=== PATIENT | female | born 1960 | race Caucasian/White ===

== ENCOUNTER 2017-04-25 14:54 | Observation (INO) ==
[2017-04-25] MEDS ORDERED: *HR* Morphine 2 MG/ML SYRINGE IVP ONE (15:07)
[2017-04-25] MEDS ORDERED: 0.9 % Sodium Chloride 1,000 ML IVC ONE (15:07)
[2017-04-25] MEDS ORDERED: Ondansetron 4 MG/2 ML VIAL IVP ONE ×2 (15:07→17:12)
--- NOTE | 2017-04-25 15:14 | Emergency Department Note ---
Disposition Clinical Impression: Kidney stone on right side Disposition: Admitted As Inpatient Condition: Good Referrals: NONE,PCP [Non-Partnered Physician] - Forms: Work/School Release, ED Satisfaction Letter Time of Disposition: 18:02 Abdominal Pain HPI - General Chief Complaint: ED Abdominal Pain Stated Complaint: abd pain, n/v Time Seen by Provider: 04/25/17 15:01 Source: patient Mode of arrival: ambulatory Limitations: no limitations Nursing Notes Reviewed: Yes Vital Signs Reviewed: Yes - History of Present Illness HPI Narrative: 56 year old female who has been experiencing increased RLQ pain for the past 3 days assocaited with vomitting She statees that 2 nights ago it was so bad that she has by the toilet vomitting and fell asleep by it due to the pain in her RLQ. She states she also has a history of psuedotumor cerebri and her most recent ICP was 32, but had a spinal tap and she denies a headache at this time. She states that the RLQ pain radiates into the RUQ and around to the back. Jaquelin states she has also had a fever at home of 101 Tmaxx and that she has not had any previous history of abdominal surgeries. Patient denies history of kidney stones, kidney infections, UTIs, or constipation/diarrhea, chest pain or shortness of breath. Perry vomit is NBNB. Pain Scale: 7 - Related Data Previous Rx's Medication Instructions Recorded Levofloxacin [Levaquin] 750 mg PO DAILY #10 tablet 10/16/16 Allergies Allergy/AdvReac Type Severity Reaction Status Date / Time codeine Allergy See Verified 10/16/16 07:14 Comments Penicillins Allergy See Verified 10/16/16 07:14 Comments Constitutional: Denies: fever, chills, weakness, weight change Eyes: Denies: eye pain, eye discharge, vision change ENT ED: Denies: ear pain, throat pain, dental pain, hearing loss, epistaxis, congestion, dysphagia Cardiovascular: Denies: chest pain, palpitations, dyspnea on exertion, edema, syncope Respiratory: Denies: cough, dyspnea, wheezes, hemoptysis, stridor Gastrointestinal: Reports: abdominal pain, nausea, vomiting. Denies: diarrhea, constipation, hematemesis, melena, hematochezia Genitourinary: Denies: dysuria, frequency, hematuria, discharge Musculoskeletal: Denies: back pain, neck pain, arthralgia, myalgia Integumentary: Denies: rash, abrasion, lesions Neurological: Denies: headache, weakness, numbness, paresthesias, confusion, abnormal gait, vertigo Psychiatric: Denies: anxiety, depression, suicidal thoughts, homicidal thoughts , auditory hallucinations, visual hallucinations Endocrine: Denies: fatigue Hematological/Lymphatic: Denies: easy bleeding, easy bruising Allergic/Immunologic: Denies: facial swelling, urticaria Abdominal Pain PMH - Past Medical History Medical history: Reports: hyperlipidemia, hypertension, other Female Surgical History: Reports: hysterectomy, other Psychiatric history: Reports: anxiety, depression - Social History Smoking status: Current every day smoker Alcohol use: Reports: rarely Drug use: Reports: none Physical Exam - General Limitations: no limitations General appearance: alert - Head Head exam: atraumatic, normocephalic, normal inspection - Eye Eye exam: Present: normal appearance, PERRL, EOMI - Expanded Eye Exam Pupils: Left: reactive - ENT ENT exam: normal exam, normal oropharynx, mucous membranes moist - Expanded ENT Exam External ear exam: Present: normal external inspection Mouth exam: Present: normal external inspection Teeth exam: Present: normal inspection Throat exam: Present: normal inspection - Neck Neck exam: Present: normal inspection, full ROM, trachea midline - Chest Chest inspection: Present: normal inspection, symmetric chest wall rise - Respiratory Respiratory exam: Present: normal lung sounds bilaterally - Cardiovascular Cardiovascular exam: Present: normal rhythm, tachycardia, normal heart sounds - Abdominal Exam Abdominal exam: Present: soft, tenderness. Absent: Non-Tender, distention, guarding, rebound, rigidity Abdominal tenderness: Present: RLQ, mild - Extremities Exam Extremities exam: Present: normal inspection, full ROM. Absent: tenderness, pedal edema - Expanded Upper Extremity Exam Shoulder exam: Present: normal inspection, full ROM Arm exam: Present: normal inspection, full ROM Elbow exam: Present: normal inspection, full ROM Forearm/Wrist exam: Present: normal inspection, full ROM Hand exam: Present: normal inspection, full ROM Vascular exam: Normal: capillary refill, radial pulse - Expanded Lower Extremity Exam Hip/Pelvis exam: Present: normal inspection, full ROM Upper leg exam: Present: normal inspection, full ROM Knee exam: Present: normal inspection, full ROM Lower leg exam: Present: normal inspection, full ROM Ankle exam: Present: normal inspection, full ROM Foot/toe exam: Present: normal inspection, full ROM Neurovascular/Tendon exam: Absent: motor deficit, sensory deficit, tendon deficit - Back Exam Back exam: Present: normal inspection, full ROM. Absent: tenderness - Neurological Exam Neurological exam: Present: alert, oriented X3 - Expanded Neurological Exam Patient oriented to: Present: person, place, time Coma Scale Eye Opening: Spontaneous Coma Scale Motor Response: Obeys Commands Coma Scale Verbal Response: Oriented Coma Scale Total: 15 - Psychiatric Psychiatric exam: Present: normal affect, normal mood - Skin Skin exam: Present: warm, dry, intact, normal color Course Course Narrative: we will do a ABCT with IV Contrast and IVF/zofran for therapy with abdominal labs. - Reevaluation(s) Reevaluation #1: updated patient on results. She has decline outptinet therapy and would like to be admitted for surgical evaluation. Time: 18:01 - Consultations Consultation #1: Dr. Galvan has accepted patinet for admission to his service Time: 18:02 Vital Signs Temperature 99.8 F H 04/25/17 14:55 Pulse Rate 105 04/25/17 14:55 Respiratory Rate 22 04/25/17 14:55 Blood Pressure 137/90 04/25/17 14:55 O2 Sat by Pulse Oximetry 96 04/25/17 14:55 Temperature 99.8 F H 04/25/17 14:55 Pulse Rate 105 04/25/17 14:55 Respiratory Rate 22 04/25/17 14:55 Blood Pressure 137/90 04/25/17 14:55 O2 Sat by Pulse Oximetry 96 04/25/17 14:55 Oxygen Delivery Oxygen Delivery Room Air Abdominal Pain - Lab Data Result diagrams: 04/25/17 15:17 04/25/17 15:17 Lab Results 04/25/17 04/25/17 04/25/17 Range/Units 15:17 15:17 15:17 WBC 11.8 H (4.3-11.1) K/mcL RBC 4.61 (3.82-4.97) M/mcL Hgb 14.0 (11.5-15.4) g/dL Hct 42.7 (35.3-44.9) % MCV 92.6 (83.0-100.0) fL MCH 30.4 (28.0-33.3) pg MCHC 32.8 (31.6-35.5) g/dL RDW 13.7 (11.5-14.5) % Plt Count 294 (140-400) K/mcL MPV 9.8 (9.4-12.4) fL Immature Gran % 0.8 (0-4) % Seg Neutrophils % 77.7 % Lymphocytes % 11.9 % Monocytes % 7.3 % Eosinophils % 1.9 % Basophils % 0.4 % Neutrophils # 9.2 H (1.6-8.9) K/mcL Lymphocytes # 1.4 (0.6-4.6) K/mcL Monocytes # 0.9 (0.0-1.3) K/mcL Eosinophils # 0.2 (0.0-0.6) K/mcL Basophils # 0.1 (0.0-0.2) K/mcL PT 11.0 (9.4-12.1) Seconds INR 1.0 APTT 30.1 (26.0-36.0) Seconds Sodium 140 (136-145) mEq/L Potassium 4.0 (3.5-4.5) mEq/L Chloride 111 H (98-109) mEq/L Carbon Dioxide 21 (19-29) mEq/L BUN 21 H (7-20) mg/dL Creatinine 1.47 H (0.57-1.11) mg/dL Est GFR ( Amer) 44 L (> 60) Est GFR (Non-Af Amer) 37 L (> 60) BUN/Creatinine Ratio 14 (6-26) Glucose 94 (70-99) mg/dL Calculated Osmolality 293 (280-300) Lactic Acid (0.5-2.2) mmol/L Calcium 9.5 (8.6-10.8) mg/dL Total Bilirubin 0.3 (0.2-1.2) mg/dL Direct Bilirubin 0.1 (0.0-0.5) mg/dL Indirect Bilirubin 0.2 (0.0-1.2) mg/dL AST 13 (5-34) Units/L ALT 11 (0-55) Units/L Alkaline Phosphatase 112 (38-126) Units/L Troponin I (0-0.03) ng/mL Serum Total Protein 6.1 (6.0-8.3) g/dL Albumin 3.2 L (3.5-5.0) g/dL Globulin 2.9 (2.4-3.5) g/dL Albumin/Globulin Ratio 1.1 (1.1-2.2) Lipase < 10 (8-78) Units/L Urine Color (Yellow) Urine Clarity (Clear) Urine pH (5.0-8.0) pH Units Ur Specific [place] (1.010-1.025) Urine Protein (Neg-Trace) mg/dL Urine Glucose (UA) (Normal) mg/dL Urine Ketones (Negative) mg/dL Urine Blood (Negative) Urine Nitrite (Negative) Urine Bilirubin (Negative) Urine Urobilinogen (Normal) mg/dL Ur Leukocyte Esterase (Negative) Urine Microscopic RBC (0-3) per hpf Urine Microscopic WBC (0-3) per hpf Ur Squamous Epith Cells (None-Few) per lpf Urine Bacteria (None-Few) per hpf Hyaline Casts (None-Few) per lpf Ur Culture Indicated? (NO) 04/25/17 04/25/17 04/25/17 Range/Units 15:17 15:17 15:42 WBC (4.3-11.1) K/mcL RBC (3.82-4.97) M/mcL Hgb (11.5-15.4) g/dL Hct (35.3-44.9) % MCV (83.0-100.0) fL MCH (28.0-33.3) pg MCHC (31.6-35.5) g/dL RDW (11.5-14.5) % Plt Count (140-400) K/mcL MPV (9.4-12.4) fL Immature Gran % (0-4) % Seg Neutrophils % % Lymphocytes % % Monocytes % % Eosinophils % % Basophils % % Neutrophils # (1.6-8.9) K/mcL Lymphocytes # (0.6-4.6) K/mcL Monocytes # (0.0-1.3) K/mcL Eosinophils # (0.0-0.6) K/mcL Basophils # (0.0-0.2) K/mcL PT (9.4-12.1) Seconds INR APTT (26.0-36.0) Seconds Sodium (136-145) mEq/L Potassium (3.5-4.5) mEq/L Chloride (98-109) mEq/L Carbon Dioxide (19-29) mEq/L BUN (7-20) mg/dL Creatinine (0.57-1.11) mg/dL Est GFR ( Amer) (> 60) Est GFR (Non-Af Amer) (> 60) BUN/Creatinine Ratio (6-26) Glucose (70-99) mg/dL Calculated Osmolality (280-300) Lactic Acid 0.8 (0.5-2.2) mmol/L Calcium (8.6-10.8) mg/dL Total Bilirubin (0.2-1.2) mg/dL Direct Bilirubin (0.0-0.5) mg/dL Indirect Bilirubin (0.0-1.2) mg/dL AST (5-34) Units/L ALT (0-55) Units/L Alkaline Phosphatase (38-126) Units/L Troponin I 0.00 (0-0.03) ng/mL Serum Total Protein (6.0-8.3) g/dL Albumin (3.5-5.0) g/dL Globulin (2.4-3.5) g/dL Albumin/Globulin Ratio (1.1-2.2) Lipase (8-78) Units/L Urine Color Yellow (Yellow) Urine Clarity Clear (Clear) Urine pH 6.0 (5.0-8.0) pH Units Ur Specific [place] 1.016 (1.010-1.025) Urine Protein Negative (Neg-Trace) mg/dL Urine Glucose (UA) Normal (Normal) mg/dL Urine Ketones Negative (Negative) mg/dL Urine Blood Small H (Negative) Urine Nitrite Negative (Negative) Urine Bilirubin Negative (Negative) Urine Urobilinogen Normal (Normal) mg/dL Ur Leukocyte Esterase Negative (Negative) Urine Microscopic RBC 5-15 H (0-3) per hpf Urine Microscopic WBC 0-3 (0-3) per hpf Ur Squamous Epith Cells Many H (None-Few) per lpf Urine Bacteria None Seen (None-Few) per hpf Hyaline Casts None Seen (None-Few) per lpf Ur Culture Indicated? NO (NO)
[2017-04-25 15:27] LABS: Basophils # 0.1 K/mcL (0.0-0.2); Basophils % 0.4 %; Eosinophils # 0.2 K/mcL (0.0-0.6); Eosinophils % 1.9 %; Hematocrit 42.7 % (35.3-44.9); Immature Granulocytes % 0.8 % (0-4); Lymphocytes # 1.4 K/mcL (0.6-4.6); Lymphocytes % 11.9 %; Mean Corpuscular HGB Conc 32.8 g/dL (31.6-35.5); Mean Corpuscular Hemoglobin 30.4 pg (28.0-33.3); Mean Corpuscular Volume 92.6 fL (83.0-100.0); Mean Platelet Volume 9.8 fL (9.4-12.4); Monocytes # 0.9 K/mcL (0.0-1.3); Monocytes % 7.3 %; Neutrophils # 9.2 K/mcL (1.6-8.9); Platelet Count 294 K/mcL (140-400); Red Blood Count 4.61 M/mcL (3.82-4.97); Red Cell Distribution Width 13.7 % (11.5-14.5); Segmented Neutrophils % 77.7 %
[2017-04-25 15:39] LABS: Activated Partial Thrombo Time 30.1 Seconds (26.0-36.0)
[2017-04-25 15:43] LABS: Alanine Aminotransferase 11 Units/L (0-55); Albumin 3.2 g/dL (3.5-5.0); Albumin/Globulin Ratio 1.1 (1.1-2.2); Alkaline Phosphatase 112 Units/L (38-126); Aspartate Amino Transferase 13 Units/L (5-34); BUN/Creatinine Ratio 14 (6-26); Bilirubin,Direct 0.1 mg/dL (0.0-0.5); Bilirubin,Indirect 0.2 mg/dL (0.0-1.2); Bilirubin,Total 0.3 mg/dL (0.2-1.2); Blood Urea Nitrogen 21 mg/dL (7-20); Calcium 9.5 mg/dL (8.6-10.8); Carbon Dioxide 21 mEq/L (19-29); Chloride 111 mEq/L (98-109); Globulin 2.9 g/dL (2.4-3.5); Glucose 94 mg/dL (70-99); Osmolality,Calculated 293 (280-300); Sodium 140 mEq/L (136-145); Total Protein 6.1 g/dL (6.0-8.3); eGFR For African Americans 44 (> 60); eGFR For Non-African Americans 37 (> 60)
[2017-04-25 15:54] LABS: Bilirubin,Urine Negative (Negative); Blood,Urine Small (Negative); Clarity,Urine Clear (Clear); Color,Urine Yellow (Yellow); Glucose,Urine (UA) Normal (Normal); Ketones,Urine Negative (Negative); Leukocyte Esterase,Urine Negative (Negative); Nitrite,Urine Negative (Negative); Protein,Urine Negative (Neg-Trace); Specific Gravity,Urine 1.016 (1.010-1.025); Urobilinogen,Urine Normal (Normal)
[2017-04-25 15:55] LABS: Lipase < 10 Units/L (8-78)
[2017-04-25 15:55] LABS: Bacteria,Urine None Seen per hpf (None-Few); Hyaline Casts,Urine None Seen per lpf (None-Few); Squamous Epithelial Cell,Urine Many per lpf (None-Few); WBC,Urine 0-3 per hpf (0-3)
[2017-04-25] MEDS ORDERED: Ketorolac 30 MG/ML VIAL IVP ONE (17:12)
[2017-04-25] MEDS ORDERED: *HR* HYDROmorphone (PF) 1 MG/ML SYRINGE IVP ONE (18:14)
[2017-04-25] MEDS ORDERED: *HR* HYDROmorphone (PF) 1 MG/ML SYRINGE IVP PRN (18:23)
[2017-04-25] MEDS ORDERED: Naloxone 0.4 MG/ML INJ IVP PRN (18:23)
[2017-04-25] MEDS ORDERED: *HR* OxyCODONE Immed Rel 5 MG TABLET PO PRN (18:23)
[2017-04-25] MEDS ORDERED: Ondansetron 4 MG/2 ML VIAL IVP PRN (18:23)
[2017-04-25] MEDS ORDERED: Acetaminophen 325 MG TABLET PO PRN (18:23)
[2017-04-25] MEDS ORDERED: *HR* Promethazine 25 MG/ML VIAL IVP PRN (18:23)
--- NOTE | 2017-04-25 18:23 | Urology History & Physical ---
Date of Encounter: 04/25/17 Time of Encounter: 18:20 Assessment and Plan (1) Kidney stone on right side Current Visit: Yes Status: Acute 56-year-old woman with a history of right flank pain secondary to a distal right ureteral stone. I will admit her for pain control. I recommend proceeding with a right ureteroscopy, laser lithotripsy, and stent placement tomorrow if her pain is not improved. She was informed of the risks of the procedure including but not limited to bleeding, infection, injury to other structures, need for further procedures, stent irritation, incomplete fragmentation, ureteral perforation, need for nephrostomy tube, need for open repair, risks unforeseen, and the risk of anesthesia. She is willing to proceed. History of Present Illness Chief complaint: Right flank pain HPI: Ms. Mishra is a 56 year old female who presents with a history of flank pain. The pain started 2 days ago. Its located in the right flank and radiates to the right groin. It became more severe today and she came to the emergency department. She's been nauseated. She has not tolerated food. The pain is very sharp. She was seen in the emergency department and a CT scan showed an 8 mm distal right ureteral stone as well as small stones in the right kidney as well as some small fragments within the left kidney. Her pain has not been well controlled and she was admitted for further pain control. Past Med Surg Social Fam HX - Past Medical History Medical history: hyperlipidemia, hypertension, other Psychiatric history: anxiety, depression - Past Surgical History Surgical History: non-contributory - Social History Smoking Status: Current every day smoker Smokeless Tobacco Status: No Alcohol use: rarely Drug use: none - Family History Daughter Hx Family Genitourinary Disorders: Yes (Stones) Medications and Allergies Levofloxacin [Levaquin] 750 mg PO DAILY #10 tablet 10/16/16 [Rx] 3 Allergy/AdvReac Type Severity Reaction Status Date / Time codeine Allergy See Verified 10/16/16 07:14 Comments Penicillins Allergy See Verified 10/16/16 07:14 Comments Review of Systems - Constitutional no chills, no fever(s) - EENT Nose, mouth and throat: no dizziness - Cardiovascular no chest pain - Respiratory no dyspnea - Gastrointestinal nausea, vomiting - Genitourinary Genitourinary: flank pain, no hematuria - Musculoskeletal no back pain - Integumentary no erythema, no rash - Neurological no weakness - Psychiatric no suicidal ideation - Hematologic/Lymphatic no easy bleeding - Allergic/Immunologic no wheezing Exam Initial Vital Signs Temp Pulse Resp BP Pulse Ox 99.8 F H 105 22 137/90 96 04/25/17 14:55 04/25/17 14:55 04/25/17 14:55 04/25/17 14:55 04/25/17 14:55 - General physical appearance Present: well developed, well nourished, no distress - Eyes Absent: icteric - ENT Present: normal nares - Neck Present: trachea midline - Respiratory Present: normal respiratory effort - Cardiovascular Cardiovascular exam IM: RRR - Abdomen Abdomen: Present: soft Urology Results - Labs 04/25/17 15:17 04/25/17 15:17 Abnormal lab results WBC 11.8 K/mcL (4.3-11.1) H 04/25/17 15:17 Neutrophils # 9.2 K/mcL (1.6-8.9) H 04/25/17 15:17 Chloride 111 mEq/L (98-109) H 04/25/17 15:17 BUN 21 mg/dL (7-20) H 04/25/17 15:17 Creatinine 1.47 mg/dL (0.57-1.11) H 04/25/17 15:17 Est GFR ( Amer) 44 (> 60) L 04/25/17 15:17 Est GFR (Non-Af Amer) 37 (> 60) L 04/25/17 15:17 Albumin 3.2 g/dL (3.5-5.0) L 04/25/17 15:17 Urine Blood Small (Negative) H 04/25/17 15:42 Urine Microscopic RBC 5-15 per hpf (0-3) H 04/25/17 15:42 Ur Squamous Epith Cells Many per lpf (None-Few) H 04/25/17 15:42 All other labs normal. - Imaging CT scan - abdomen: report reviewed, image reviewed CT scan - pelvis: report reviewed, image reviewed
[2017-04-25] MEDS: 0.9 % Sodium Chloride 1,000 ML IVC SCH (20:46)
[2017-04-26] MEDS: Ketorolac 15 MG/ML VIAL IVP SCH ×2 (00:15→05:15)
[2017-04-26] MEDS: 0.9 % Sodium Chloride 1,000 ML IVC SCH (05:13)
--- NOTE | 2017-04-26 06:54 | Urology Progress Note ---
Date of Encounter: 04/26/17 Time of Encounter: 06:53 - Assessment and Plan (1) Kidney stone on right side Current Visit: Yes Status: Acute Assessment and plan: Right ureteral stone. 1. Plan for right ureteroscopic stone extraction with laser lithotripsy and stent placement. She is aware of all risks. Levofloxacin given this morning. All questions answered. Progress Note Narrative: Still with some pain this morning. No fevers overnight. Plan for right ureteroscopy today. Objective Initial Vital Signs Temp Pulse Resp BP Pulse Ox 99.8 F H 105 22 137/90 96 04/25/17 14:55 04/25/17 14:55 04/25/17 14:55 04/25/17 14:55 04/25/17 14:55 - General physical appearance Present: well developed, well nourished, no distress - Respiratory Present: normal respiratory effort - Abdomen Present: soft - Labs 04/25/17 15:17 04/25/17 15:17 - VTE Documentation of Mechanical Device: Intermittent pneumatic compression device Consult Discharge Plan - Plan Referrals: Dino Martel MD [Primary Care Provider] - Hilton Galvan MD [Partnered Physician] -
[2017-04-26] MEDS ORDERED: Levofloxacin 500 MG/100 ML 500 MG/100 ML BAG IVPB ONE (07:00)
--- NOTE | 2017-04-26 07:25 | Anesthesia Evaluation PreOp ---
Date of Encounter: 04/26/17 Time of Encounter: 07:47 - Past History Planned Operation: Right Ureteroscopic Stone Extraction Cardiac History: HTN, Hyperlipidemia Pulmonary History: Smoker (42 years), Asthma CUSTOMER RELATIONS COORDINATOR History: Other (pseudotumor cerebri) Other Medical History: Renal (kidney stones), GERD, Other (anxiety/depression) Anesthesia History: No Prior Anesthetic Complications, Past Anesthesia Alcohol Use: rarely Drug use: none Medications and Allergies AcetaZOLAMIDE [Diamox Sequels] 500 mg PO BID 04/25/17 [History] Albuterol Sulfate [Proair Hfa] 2 puff IH Q4H PRN 04/25/17 [History] Amitriptyline [Elavil] 25 - 50 mg PO HS 04/25/17 [History] Amlodipine Besylate 2.5 mg PO DAILY 04/25/17 [History] Atorvastatin [Lipitor] 40 mg PO HS 04/25/17 [History] Cholecalciferol (D-3) [Vitamin D] 2,000 unit PO DAILY 04/25/17 [History] Esomeprazole Magnesium [Nexium] 40 mg PO DAILY 04/25/17 [History] Etodolac [Lodine] 400 mg PO BID PRN 04/25/17 [History] Fluticasone Propionate [Flovent Hfa] 2 puff IH BID PRN 04/25/17 [History] Furosemide [Lasix] 20 mg PO DAILY 04/25/17 [History] Gabapentin [Neurontin] 300 mg PO BID PRN 04/25/17 [History] Metoprolol Succinate 100 mg PO DAILY 04/25/17 [History] Multivitamin [Multi-Day Vitamins] 1 each PO DAILY 04/25/17 [History] [place]-3/Dha/Epa/Fish Oil [Fish Oil 500 mg Softgel] 1 each PO DAILY 04/25/17 [ History] Potassium Chloride [Klor-Con 10] 10 meq PO BID 04/25/17 [History] Sertraline [Zoloft] 150 mg PO DAILY 04/25/17 [History] Tizanidine HCl [Zanaflex] 4 mg PO Q8H PRN 04/25/17 [History] Vitamin E 1,000 unit PO DAILY 04/25/17 [History] clonazePAM [Klonopin] 0.5 mg PO BID PRN 04/25/17 [History] 3 Allergy/AdvReac Type Severity Reaction Status Date / Time codeine Allergy See Verified 10/16/16 07:14 Comments Penicillins Allergy See Verified 10/16/16 07:14 Comments laxatives AdvReac Gastrointestinal Uncoded 04/26/17 06:37 Upset - Meds/Allergy Pre-op Review Medications Reviewed: Yes Allergies Reviewed: Yes Beta Blockers on Current Med List: Yes If Beta Blockers taken, Date/Time (Last Dose taken): 04/23/2017 Anesthesia Results - Labs 04/25/17 15:17 04/25/17 15:17 Laboratory Tests 04/25/17 15:17 PT 11.0 INR 1.0 APTT 30.1 - Imaging EKG: report reviewed (04/25/2017 SR) Additional studies: 06/04/2013 LEFT HEART CATH Indications: Positive Nuclear Stress Test Impressions: Coronary arteries are angiographically normal. The left ventricle is normal and has normal contractility EF 60% Anesthesia Exam Vital Signs/O2 Sat/Glucose, Most Recent Temp Pulse Resp BP Pulse Ox 98.0 F 70 15 110/66 96 04/26/17 04:25 04/26/17 04:25 04/26/17 04:25 04/26/17 04:25 04/26/17 04:25 Blood Glucose* 93 Height: 5'7''/1.7 m Weight: 182 lbs/82.6 kg NPO (# of Hours): 8 Pain Scale: 3 Pain Scale Used: Numeric (1 - 10) - HEENT Pupil (Motor): EOMI Mallampati: II Teeth: Edentulous Oral Opening: Greater than 3 - CUSTOMER RELATIONS COORDINATOR LOC: Oriented CUSTOMER RELATIONS COORDINATOR Motor: Normal RUE, Normal LUE, Normal RLE, Normal LLE, Normal Face CUSTOMER RELATIONS COORDINATOR Sensory: Normal: RUE, LUE, RLE, LLE, Face - Cardiac Rhythm: Regular Murmur: None - Pulmonary Breath Sounds: bilateral Clear Respiratory Effort: Symmetrical Anesthesia Assess/Plan ASA Score: 3 Modified Zoya Scale for Level of Consciousness: Cooperative, oriented, and tranquil Anesthetic Plan: General Monitoring Plan: Standard Monitors Recovery Plan: PACU
[2017-04-26] MEDS ORDERED: Albuterol 2.5 MG/3 ML NEBULIZER IH ONE (07:51)
[2017-04-26] MEDS ORDERED: Albuterol 2.5 MG/3 ML NEBULIZER ONE (07:56)
[2017-04-26] MEDS ORDERED: *HR* HYDROmorphone (PF) 1 MG/ML SYRINGE IVP PRN ×2 (08:06→11:09)
[2017-04-26] MEDS ORDERED: *HR* Promethazine 25 MG/ML VIAL IVP PRN ×2 (08:06→11:09)
[2017-04-26] MEDS ORDERED: *HR* Propofol 200 MG/20 ML VIAL IVP ONE (08:52)
[2017-04-26] MEDS ORDERED: Lidocaine -MPF 2% 2 ML VIAL ONE (08:52)
[2017-04-26] MEDS ORDERED: *HR* FentaNYL (PF) 100 MCG/2 ML VIAL ONE (08:52)
[2017-04-26] MEDS ORDERED: *HR* Midazolam HCl 2 MG/2 ML VIAL ONE (08:52)
[2017-04-26] MEDS ORDERED: *HR* Metoprolol 5 MG/5 ML VIAL IVP ONE (09:16)
[2017-04-26] MEDS ORDERED: Dexamethasone 4 MG/ML VIAL ONE (09:25)
[2017-04-26] MEDS ORDERED: Ondansetron 4 MG/2 ML VIAL ONE (09:25)
--- NOTE | 2017-04-26 10:00 | Operative Note ---
Date of procedure: 04/26/17 Pre-op diagnosis: 1. Right distal ureteral stone 2. Right renal stones. Post-op diagnosis: same Procedure: 1. Distal right ureteroscopy, laser lithotripsy, basket stone extraction, and right ureteral stent placement. 2. Staged right proximal ureteroscopy, laser lithotripsy. Implants: 6 [place] by 24 cm double-J stent. Complications: None. Anesthesia: NANCYA Surgeon: Hilton Galvan Estimated blood loss (cc): 1 Specimen: right ureteral stone Condition: stable Disposition: PACU Procedure in Detail: Indications: Alexia is a 56-year-old female who presents with right flank pain. A CT scan showed a 8 mm distal right ureteral stone. In addition she had right renal stones. She failed outpatient management and elected to have the stone removed. She elected to undergo a right distal ureteroscopy, laser lithotripsy, and stent placement along with a staged right proximal ureteroscopy and laser lithotripsy. She was aware of the risks of the procedure including but not limited to bleeding, infection, injury to other structures, need for further procedures, need for stent, stent irritation, incomplete treatment, and the risk of anesthesia. She is willing to proceed. Procedure: After informed consent was obtained the patient was brought back to the operating room and placed in supine position. A time out was performed. General anesthesia was administered and an LMA was placed. She was then placed in the lithotomy position. She was prepped and draped in the usual sterile fashion. Cystoscopy was performed. The anterior urethra was normal. There was no evidence of bladder tumors. The ureteral orifices were in the normal orthotopic position. There was no duplication of the ureteral orifices. The sensor wire was placed in the right ureteral orifice and with the assistance of an open- ended catheter it was able to be moved past the stone into the kidney under fluoroscopic guidance. I then gently dilated the ureter with the 8/10 [place] ureteral dilator. I then advanced the semirigid ureteroscope into the ureter. The stone was fragmented using the 200 micron fiber. The stone fragments were then basket extracted. Once all the stones were extracted, I placed a Zip wire through the scope and this is brought to the kidney under fluoroscopic guidance. An 11/13 [place] ureteral access sheath was then placed. The flexible ureteroscope was advanced into the kidney. Two stones were seen in the lower pole calyx. These stones were then basketed and removed to the upper pole calyx. There were 3 other stones in the upper pole calyx as well. The laser fiber was then inserted and the stones were then lithotripsied. All the fragments appeared to be approximately 1 mm or less in size. These were left in the kidney and should pass with the stent. Once the stones were adequate fragmented the ureteroscope was removed. There is no evidence of injury to the ureter on the pullout ureteroscopy. A 6 [place] by 24cm JJ stent was then placed with good curl seen in the kidney and the bladder. The dangle string was left intact and tucked into the vagina. The patient was then awakened from general anesthesia and brought to recovery room in good condition. All sponge, needle, and instrument counts were correct
--- NOTE | 2017-04-26 10:07 | Discharge Summary ---
Date of Encounter: 04/26/17 Time of Encounter: 10:04 - Discharge Diagnosis (1) Kidney stone on right side Priority: Primary Status: Acute - Discharge Medications Prescriptions: Oxycodone HCl/Acetaminophen [Percocet 5-325 mg Tablet] 1 each PO Q6H PRN #25 tablet PRN Reason: Pain Phenazopyridine HCl [Pyridium] 200 mg PO TIDAC #12 tab Home Medications: AcetaZOLAMIDE [Diamox Sequels] 500 mg PO BID 04/25/17 [History] Albuterol Sulfate [Proair Hfa] 2 puff IH Q4H PRN 04/25/17 [History] Amitriptyline [Elavil] 25 - 50 mg PO HS 04/25/17 [History] Amlodipine Besylate 2.5 mg PO DAILY 04/25/17 [History] Atorvastatin [Lipitor] 40 mg PO HS 04/25/17 [History] Cholecalciferol (D-3) [Vitamin D] 2,000 unit PO DAILY 04/25/17 [History] Esomeprazole Magnesium [Nexium] 40 mg PO DAILY 04/25/17 [History] Etodolac [Lodine] 400 mg PO BID PRN 04/25/17 [History] Fluticasone Propionate [Flovent Hfa] 2 puff IH BID PRN 04/25/17 [History] Furosemide [Lasix] 20 mg PO DAILY 04/25/17 [History] Gabapentin [Neurontin] 300 mg PO BID PRN 04/25/17 [History] Metoprolol Succinate 100 mg PO DAILY 04/25/17 [History] Multivitamin [Multi-Day Vitamins] 1 each PO DAILY 04/25/17 [History] [place]-3/Dha/Epa/Fish Oil [Fish Oil 500 mg Softgel] 1 each PO DAILY 04/25/17 [ History] Potassium Chloride [Klor-Con 10] 10 meq PO BID 04/25/17 [History] Sertraline [Zoloft] 150 mg PO DAILY 04/25/17 [History] Tizanidine HCl [Zanaflex] 4 mg PO Q8H PRN 04/25/17 [History] Vitamin E 1,000 unit PO DAILY 04/25/17 [History] clonazePAM [Klonopin] 0.5 mg PO BID PRN 04/25/17 [History] Oxycodone HCl/Acetaminophen [Percocet 5-325 mg Tablet] 1 each PO Q6H PRN #25 tablet 04/26/17 [Rx] Phenazopyridine HCl [Pyridium] 200 mg PO TIDAC #12 tab 04/26/17 [Rx] Allergies/Adverse Reactions: 3 Allergy/AdvReac Type Severity Reaction Status Date / Time codeine Allergy See Verified 10/16/16 07:14 Comments Penicillins Allergy See Verified 10/16/16 07:14 Comments laxatives AdvReac Gastrointestinal Uncoded 04/26/17 06:37 Upset Labs on day of discharge: Labs from last 24 hours 04/26/17 05:40 POC Glucose 93 H Date of admission: 04/25/17 18:14 Primary care physician: Dino Martel MD Discharging clinician: Hilton Galvan Anticipated date of discharge: 04/26/17 - Patient Status Disposition: Home, Self-Care Condition: Good Functional capacity at discharge: independent ambulation Overall status at discharge: patient is progressing back to baseline - Discharge Instructions Follow Up With: Hilton Galvan MD [Partnered Physician] - (1-2 weeks with a KUB.) Additional Instructions: 1. The patient can remove her stent in 5 days by pulling on the string. If she would prefer, she can make an appt to have the stent removed in my office next week. 2. She should expect to feel flank pain with voiding. 3. The patient should call for any fevers, chills, nausea, emesis, or uncontrolled pain. 4. Please provide a work excuse if necessary for up to 1 week off. 5. If she pulls her stent out on her own, she can follow up with me in 1-2 weeks with a KUB. - Diet and Activity Activity: increase activity as tolerated Diet: advance to your usual diet - Hospital Course Hospital course: Ms. Mishra is a 56 year old female who presented with right flank pain. A CT scan showed an 8 mm stone in the distal right ureter as well as multiple stones within the right kidney. On April 26, 2017 she underwent a right ureteroscopic stone extraction. Stent was placed afterwards. She did well after surgery and was discharged home later that day. - Time Spent with Patient Total time spent providing and/or coordinating discharge services: Less than 30 minutes Exam Initial Vital Signs Temp Pulse Resp BP Pulse Ox 99.8 F H 105 22 137/90 96 04/25/17 14:55 04/25/17 14:55 04/25/17 14:55 04/25/17 14:55 04/25/17 14:55 - General physical appearance Present: well developed, well nourished, no distress - Eyes Absent: icteric - ENT Present: normal nares - Neck Present: trachea midline - Respiratory Present: normal respiratory effort - Cardiovascular Cardiovascular exam IM: RRR - Abdomen Abdomen: Present: soft - VTE Documentation of Mechanical Device: Intermittent pneumatic compression device
--- NOTE | 2017-04-26 10:39 | Anesthesia Evaluation Post Op ---
Date of Encounter: 04/26/17 Time of Encounter: 10:38 - Vital Signs Vital Signs: Vital Signs/O2 Sat, Most Current Temp Pulse Resp BP Pulse Ox 98.3 F 79 16 126/72 93 04/26/17 10:04/26/17 10:04/26/17 10:29 04/26/17 10:04/26/17 10:29 - Lungs Lungs: Clear Ascult./Percussion - Airway Airway: Non-obstructed - Cardiovascular Regular Rate - Mental Status Mental Status: Alert & Oriented, Answers Appropriately - Pain Pain Scale: 0 Pain Scale used: Numeric (1 - 10) - Nausea Vomiting Nausea Vomiting: Not Present - Hydration Hydration: Ice chips, Has not voided - Discharge PostOp Status: Transfer Patient to floor
[2017-04-26] MEDS ORDERED: Naloxone 0.4 MG/ML INJ IVP PRN (11:09)
[2017-04-26] MEDS ORDERED: Gabapentin 300 MG CAPSULE PO PRN (11:09)
[2017-04-26] MEDS ORDERED: 0.9 % Sodium Chloride 1,000 ML IVC SCH (11:09)
[2017-04-26] MEDS ORDERED: *HR* OxyCODONE Immed Rel 5 MG TABLET PO PRN (11:09)
[2017-04-26] MEDS ORDERED: acetaZOLAMIDE 250 MG TABLET PO SCH (11:09)
[2017-04-26] MEDS ORDERED: clonazePAM 0.5 MG TABLET PO PRN (11:09)
[2017-04-26] MEDS ORDERED: tiZANidine 4 MG TABLET PO PRN (11:09)
[2017-04-26] MEDS ORDERED: Ondansetron 4 MG/2 ML VIAL IVP PRN (11:09)
[2017-04-26] MEDS ORDERED: Beclomethasone 80mcg MDI IH PRN (11:09)
[2017-04-26] MEDS ORDERED: Furosemide 20 MG TABLET PO SCH (11:09)
[2017-04-26] MEDS ORDERED: Acetaminophen 325 MG TABLET PO PRN (11:09)
[2017-04-26] MEDS ORDERED: Ketorolac 15 MG/ML VIAL IVP SCH (12:00)
[2017-04-26 13:58] VITALS: BP 136/82
[2017-04-27] MEDS ORDERED: Levofloxacin 250 MG/50 ML 250 MG/50 ML BAG IVPB SCH (07:00)
[2017-04-27] MEDS ORDERED: Metoprolol XL (24 HR) Succ 50 MG TAB.ER.24H PO SCH (09:00)
[2017-04-27] MEDS ORDERED: amLODIPine 5 MG TABLET PO SCH (09:00)
[2017-04-27] MEDS ORDERED: Cholecalciferol (D-3) 1,000 UNIT TABLET PO SCH (09:00)
--- NOTE | 2017-04-28 10:34 | Electrocardiograph Report ---
[address] [address] Test Date: 2017-04-25 Pat Name: Alexia Mishra Department: 104 Room: 3A44 Gender: F Shed Boss: PRISCILA : 1960 Requested By: Hilton Galvan Order Number: [id number] Reading MD: Juan Sweet MD Measurements Intervals [place] Rate: 80 P: 49 DC: 141 QRS: 57 QRSD: 98 T: 32 QT: 374 QTc: 411 Interpretive Statements SINUS RHYTHM Electronically Signed On 04-28-2017 10:32:35 EDT by Juan Sweet MD
== END 2017-04-26 15:05 | disposition home or self-care (01) ==
LOC: 3ANU 14:54 → EMEROO 14:54 → 3ANU 19:17
PROVIDERS: ADMIT Urology; ATTEND Urology

== ENCOUNTER 2019-02-08 09:21 | Observation (INO) ==
[2019-02-08 10:03] LABS: Basophils # 0.1 K/mcL (0.0-0.2); Basophils % 0.8 %; Eosinophils # 0.2 K/mcL (0.0-0.6); Eosinophils % 2.4 %; Hematocrit 47.3 % (35.3-44.9); Hemoglobin 15.2 g/dL (11.5-15.4); Immature Granulocytes % 0.7 % (0-4); Lymphocytes # 1.7 K/mcL (0.6-4.6); Lymphocytes % 18.7 %; Mean Corpuscular HGB Conc 32.1 g/dL (31.6-35.5); Mean Corpuscular Hemoglobin 29.5 pg (28.0-33.3); Mean Corpuscular Volume 91.7 fL (83.0-100.0); Mean Platelet Volume 9.6 fL (9.4-12.4); Monocytes # 0.5 K/mcL (0.0-1.3); Monocytes % 5.8 %; Neutrophils # 6.4 K/mcL (1.6-8.9); Platelet Count 301 K/mcL (140-400); Red Blood Count 5.16 M/mcL (3.82-4.97); Red Cell Distribution Width 15.5 % (11.5-14.5); Segmented Neutrophils % 71.6 %; White Blood Count 8.9 K/mcL (4.3-11.1)
[2019-02-08] MEDS ORDERED: *HR* Midazolam HCl 2 MG/2 ML VIAL IVP ONE ×2 (10:03→11:04)
[2019-02-08] MEDS ORDERED: *HR* FentaNYL (PF) 100 MCG/2 ML VIAL IVP ONE ×2 (10:03→11:04)
--- NOTE | 2019-02-08 10:03 | History & Physical Report ---
Date of Encounter: 02/08/19 Time of Encounter: 10:03 24 Hour HP Update - Instructions Instructions: If the History and Physical is less than 30 days old and was completed prior to A.M. admission and or procedure and has NOT been updated on calendar day of procedure please complete this update prior to performing procedure. - Update Patient reports changes in Medical Condition: No Changes in examination, assessment, or condition: No Changes in Medication: No Preop tests/diagnostics Reviewed: Yes Pre-Op MRSA Screen: Negative Surgery Remains Indicated: Yes Consent for Planned Operative Procedure(s) Verified: Yes - Pre-Operative Checklist Preoperative Checklist Indicated: No Prophylactic Antibiotic Ordered: No Home Medications Include Beta Clara: No Beta Clara Taken Today (Day of Surgery): No Beta Clara Taken Yesterday (Day Prior to Surgery): No Is VTE Prophylaxis Indicated?: NO
[2019-02-08] MEDS ORDERED: 0.9 % Sodium Chloride 500 ML ONE (10:05)
[2019-02-08 10:10] LABS: Prothrombin Time 11.3 Seconds (9.4-12.1)
[2019-02-08] MEDS ORDERED: *HR* Midazolam HCl 2 MG/2 ML VIAL ONE (11:04)
[2019-02-08] MEDS ORDERED: *HR* FentaNYL (PF) 100 MCG/2 ML VIAL ONE (11:05)
--- NOTE | 2019-02-08 12:00 | IR Procedure Note ---
Consent Obtained: Written consent Timeout: Correct patient and procedure verified, Correct site verified, Time out performed, Skin prep completed Local anesthetic: Lidocaine 1% Was there an personalized living assistant present: No Estimated blood loss (cc): 5 Complications: other (small right pneumothorax, moderate surrounding hemorrhage) Indications: lung nodules Procedure Performed: right lung biopsy Site/Technique: right lung Results/Findings (any specimens removed): NA Post Procedure Treatment Plan: monitor, possible chest tube Specimen: 20 G x 4, one sample for culture
--- NOTE | 2019-02-08 14:59 | Event Note ---
Date of Encounter: 02/08/19 Time of Encounter: 14:57 58 year old female who presented for outpatient lung biopsy. Biopsy was complicated by a small right pneumothorax. The pneumothorax is essentially unchanged since post procedure. However, given that patient is experiencing pain still, I will have the patient observed overnight with repeat xray in the morning. If pneumothorax is unchanged, she can likely be discharged if not symptomatic. If larger, will likely need a chest tube placed. Patient is agreeable.
[2019-02-08] MEDS ORDERED: *HR* HYDROcodone/Acet 5/325 mg TABLET PO PRN (16:21)
[2019-02-08] MEDS ORDERED: Naloxone 0.4 MG/ML INJ IVP PRN (16:28)
--- NOTE | 2019-02-08 16:47 | Internal Med History&Physical ---
Date of Encounter: 02/08/19 Time of Encounter: 17:03 Internal Medicine - H&P: HPI Chief complaint: pneumothorax Admitted From: Home Plans for Post Hospital Care: Home History of present illness: Ms. Mishra is a 58 year old female who has hx of hypertension, COPD , smoker, GERD, hyperlipidemia presented to IR for lung biopsy today. Patient has long hx of smoking, had CT abdomen for kidney stone in 11/2018 , which showed mutiple lung nodules, she has siginificant family hx of lung cancer and smoker over 445 years. Patient was refered to IR for lung biopsy. She has Successful CT-guided core biopsy of a right lower lobe nodule. Initial attempt at biopsy of the right middle lobe nodule was unsuccessful due to surrounding parenchymal hemorrhage. Completion CT showed a small right-sided pneumothorax, some of which was manually aspirated. Patient is doing well, on 2 L NC, denies SOB, mild chest pain from the needle site. Biopsy was complicated by a small right pneumothorax. The pneumothorax is essentially unchanged since post procedure. However, given that patient is experiencing pain still, Dr Alvarado wants to have the patient observed overnight with repeat xray in the morning. If pneumothorax is unchanged, she can likely be discharged if not symptomatic. If larger, will likely need a chest tube placed. Patient is agreeable. 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 Psychiatric history: anxiety, depression - Past Surgical History Surgical History: hysterectomy Additional surgical history: hand surgery, CSF drained x3, heart cath, - Social History Smoking Status: Current every day smoker Smokeless Tobacco Status: No Alcohol use: rarely Drug use: marijuana Internal Medicine - H&P: Meds Atorvastatin [Lipitor] 40 mg PO HS 04/25/17 [History] Cholecalciferol (D-3) [Vitamin D] 2,000 unit PO DAILY 04/25/17 [History] Esomeprazole Magnesium [Nexium] 40 mg PO DAILY 04/25/17 [History] Sertraline [Zoloft] 150 mg PO DAILY 04/25/17 [History] Vitamin E 1,000 unit PO DAILY 04/25/17 [History] Amlodipine Besylate 2.5 mg PO DAILY 12/07/18 [History] Docusate [Colace] 100 mg PO BID #60 capsule 12/07/18 [Rx] HYDROcodone/Acet 5/325 mg [Zuni 5-325 mg] 1 tab PO Q6H PRN 12/07/18 [History] Multivitamin [Daily Multiple Vitamin] 1 tab PO DAILY 12/07/18 [History] Phenazopyridine HCl [Pyridium] 200 mg PO TIDAC #12 tab 12/07/18 [Rx] Allergy/AdvReac Type Severity Reaction Status Date / Time codeine Allergy Nausea Verified 12/07/18 11:00 Vomiting Penicillins Allergy Anaphylaxis Verified 12/07/18 11:00 bees Allergy Anaphylaxis Uncoded 12/07/18 11:00 laxatives AdvReac Gastrointestinal Uncoded 12/07/18 11:00 Upset Vomiting All Systems PM: A 10-system review of systems was performed and is negative for pertinent find ings except as documented above in the HPI. - Constitutional Vitals: Pulse Resp BP Pulse Ox 81 18 130/71 98 02/08/19 13:51 02/08/19 13:51 02/08/19 13:51 02/08/19 13:51 General appearance: Present: A&O X 3, pleasant Exam: CONSTITUTIONAL: Patient appears as an age appropriate female well developed, in no acute distress. EYES Clear sclerae, bilateral pupils are equal, reactive to light and accommodation. Extraocular movements are intact RESPIRATORY: No accessory muscle use, bilateral clear to auscultation, no wheezing, no crackles/rales. CARDIOVASCULAR: Regular heart rate, normal S1 and S2, no murmurs GASTROINTESTINAL: bowel sounds present, soft, no tenderness. No hepatospleno megaly. No bilateral CVA tenderness MUSCULOSKELETAL: Joints in normal range of motion, no clubbing, no edema, no cyanosis. Bilateral peripheral pulses 2+ LYMPHATIC no lymphadenopathy in neck, groin and axilla bilaterally, no thyromegaly. NEUROLOGIC: CN II to XII are grossly intact, no focal neurological deficit. Deep tendon reflexes 2+ bilaterally. Normal light touch sensation to upper and lower extremity PSYCHIATRIC: Oriented x3, with good insight, mood is euthymic. No hallucinations or delusions. SKIN: Skin warm and dry, no rashes, no open wound. Internal Med - H&P Results - Labs CBC & Chem 7: 02/08/19 09:14 Labs: Short CBC 02/08/19 Range/Units 09:14 WBC 8.9 (4.3-11.1) K/mcL Hgb 15.2 (11.5-15.4) g/dL Hct 47.3 H (35.3-44.9) % Plt Count 301 (140-400) K/mcL Neutrophils # 6.4 (1.6-8.9) K/mcL - Impressions ITS Impressions Lung Biopsy CT 02/08/19 00:00 FINDINGS/IMPRESSION: Successful CT-guided core biopsy of a right lower lobe nodule as described above. Initial attempt at biopsy of the right middle lobe nodule was unsuccessful due to surrounding parenchymal hemorrhage. Completion CT showed a small right-sided pneumothorax, some of which was manually aspirated. Postprocedure chest radiograph to follow. Patient may require chest tube placement. D/ / Vladimir Alvarado / Vladimir Alvarado Interpreting Provider: Vladimir Alvarado Lung Biopsy CT 02/08/19 11:15 FINDINGS/IMPRESSION: Successful CT-guided core biopsy of a right lower lobe nodule as described above. Initial attempt at biopsy of the right middle lobe nodule was unsuccessful due to surrounding parenchymal hemorrhage. Completion CT showed a small right-sided pneumothorax, some of which was manually aspirated. Postprocedure chest radiograph to follow. Patient may require chest tube placement. D/ / Vladimir Alvarado / Vladimir Alvarado Interpreting Provider: Vladimir Alvarado Chest X-Ray 02/08/19 11:57 IMPRESSION: Trace right apical pneumothorax. No mediastinal shift. Hazy right mid lung opacity consistent with post biopsy hemorrhage. Nodular opacities in the left mid lung. D/ / Jessica Diallo MD / Jessica Diallo MD Interpreting Provider: Jessica Diallo MD Chest X-Ray 02/08/19 13:33 IMPRESSION: Small right apical pneumothorax appears stable to minimally larger compared to previous chest x-ray. D/ / Vladimir Alvarado / Vladimir Alvarado Interpreting Provider: Vladimir Alvarado - Summary of Assessment and Plan Summary of Assessment and Plan: Abril is a 58 year old female who has hx of hypertension, COPD , smoker, GERD, hyperlipidemia presented to IR for lung biopsy today. Biopsy was complicated by a small right pneumothorax. The pneumothorax is essentially unchanged since post procedure. However, given that patient is expe riencing pain still, Dr Alvarado wants to have the patient observed overnight with repeat xray in the morning. If pneumothorax is unchanged, she can likely be discharged if not symptomatic. If larger, will likely need a chest tube placed. Patient is agreeable 1. post-procedure pneumothorax, O2, CXR am 2. COPD, prn duoneb 3. tobaco dependent, nicotine patch 4. Hypertension, amlodipine 5.Hyperlipidemia, statin 6. depression, sertraline - Time Spent With Patient Total time spent is greater than 50% in coordination of care (as documented) at patient's floor/unit and/or counseling patient: Greater than 35 minutes
[2019-02-08] MEDS ORDERED: Ipratropium/Albuterol Neb 3 ML IH PRN (17:01)
[2019-02-08] MEDS: Nicotine 21 MG PATCH.TD24 TD SCH (18:58)
[2019-02-08] MEDS: Acetaminophen 325 MG TABLET PO PRN (22:09)
[2019-02-09] MEDS: Cholecalciferol (D-3) 1,000 UNIT TABLET PO SCH (08:08)
[2019-02-09] MEDS: Nicotine 21 MG PATCH.TD24 TD SCH (08:08)
[2019-02-09] MEDS: amLODIPine 5 MG TABLET PO SCH (08:09)
[2019-02-09] MEDS: Acetaminophen 325 MG TABLET PO PRN ×2 (11:58→22:15)
--- NOTE | 2019-02-09 13:07 | Internal Med Progress Note ---
Hospitalist Progress Note - Encounter Date of Encounter: 02/09/19 Time of Encounter: 08:04 - Subjective Interval History: patient was seen and examined at bedside. discussed plan of care with [facility] patient and she is in agreeent. reports that her pain in her chest has significantly improved. had no overnight events. denies palpitations, SOB. is inquiring about discharge. - Exam Vitals: Temp Pulse Resp BP Pulse Ox 98.7 F 92 16 137/80 97 02/09/19 11:31 02/09/19 11:31 02/09/19 11:31 02/09/19 11:31 02/09/19 11:31 Exam: General: Patient is alert, oriented, no acute distress, speaks in full sentences Head: atraumatic, normocephalic, Eye: normal appearance, PERRL, no scleral icterus, no conjunctival injection ENT: mucous membranes moist, normal external ear exam Neck: normal inspection, trachea midline, full ROM, no carotid bruits Chest: normal inspection, symmetric chest rise, biopsy site is clean covered with bandaid. crepetius on palpation of the posterior chest Respiratory: Good respiratory effort. Bilateral breath sounds are clear Cardiovascular: Regular rate and rhythm. s1 and s2 No clicks, rubs, gallops, or murmors. Abdomen: Bowel sounds present normoactive x-4 quadrants. Abdomen is soft, nondistended. no Epigastric tenderness. No guarding or rebound. No organomegaly noted, obese musculoskeletal: Spontaneously moving all extremities. no edema, no calf tenderness Skin: warm, dry, intact. Neuro: Alert and oriented x 3, no focal deficit Psych: Patient's affect is normal - Assessment and Plan (1) Pneumothorax after biopsy Current Visit: Yes Status: Acute (2) Subcutaneous emphysema after procedure Current Visit: Yes Status: Acute (3) Pneumomediastinum Current Visit: Yes Status: Acute (4) Hydropneumothorax Current Visit: Yes Status: Acute (5) Lung nodule Current Visit: Yes Status: Acute - Summary of Assessment and Plan Summary of Assessment and Plan: Abril is a 58 year old female who has hx of hypertension, COPD , smoker, GERD, hyperlipidemia presented to IR for lung biopsy today. Biopsy was complicated by a small right pneumothorax. The pneumothorax is essentially unchanged since post procedure. However, given that patient is experiencing pain still, Dr Alvarado wants to have the patient observed overnight with repeat xray in the morning. If pneumothorax is unchanged, she can likely be discharged if not symptomatic. If larger, will likely need a chest tube placed. Patient is agreeable 1. post-procedure pneumothorax, hydropneumothorax, sub cut emphysema and small focus of pneumomediastinum in the superior aspect- IR on board- to have CXR repeated this afternoon, continue with . O2 and tele monitoring - discussed case with Dr. Forbes ( IR) 2. COPD, prn duoneb, continue home meds 3. tobaco dependent, nicotine patch 4. Hypertension, amlodipine 5.Hyperlipidemia, statin 6. depression, sertraline - Time Spent with Patient Total time spent is greater than 50% in coordination of care (as documented) at patient's floor/unit and/or counseling patient: 25 - 35 minutes Internal Medicine: Result - Labs CBC & Chem 7: 02/08/19 09:14 - ABG Interpretation ABG results: PT/INR, D-dimer PT 11.3 Seconds (9.4-12.1) 02/08/19 09:14 - Impressions Impressions Chest X-Ray 02/08/19 13:33 IMPRESSION: Small right apical pneumothorax appears stable to minimally larger compared to previous chest x-ray. D/ / Vladimir Alvarado / Vladimir Alvarado Interpreting Provider: Vladimir Alvarado Chest X-Ray 02/09/19 07:34 IMPRESSION: 1. Increase in right chest wall subcutaneous emphysema without obvious pneumothorax. D/ / Sharif Forbes MD / Sharif Forbes MD Interpreting Provider: Sharif Forbes MD Chest CT 02/09/19 09:12 IMPRESSION: 1. Interval improvement in right pneumothorax with a tiny residual right hydropneumothorax. 2. Post biopsy changes and or hemorrhage within the right lower lobe have also improved since 02/08/2019. Ground-glass attenuation within the right upper lobe likely reflecting post biopsy changes and/or hemorrhage have not significantly changed since the prior exam. 3. Worsening subcutaneous emphysema in the right anterior chest wall extending posteriorly and superiorly into the right neck. There is also a small focus of pneumomediastinum in the superior aspect. 4. Otherwise no significant interval change in bilateral pulmonary solid and cavitary nodules and intrathoracic adenopathy. D/ / 02/09/2019 10:40:58 Gwen Hunt MD / toñito Interpreting Provider: Gwen Hunt MD Consult Discharge Plan - Plan Referrals: Dino Martel MD [Primary Care Provider] - (Appt has been requested. )
[2019-02-10] MEDS: Cholecalciferol (D-3) 1,000 UNIT TABLET PO SCH (08:55)
[2019-02-10] MEDS: amLODIPine 5 MG TABLET PO SCH (08:57)
[2019-02-10] MEDS: Nicotine 21 MG PATCH.TD24 TD SCH (08:57)
[2019-02-10] MEDS: Acetaminophen 325 MG TABLET PO PRN ×2 (08:57→16:23)
[2019-02-10] MEDS ORDERED: (Fluticasone/Umeclidin/Vilanter [Trelegy Ellipta 100-) PO SCH (09:00)
[2019-02-10] MEDS ORDERED: Multivit/Ca/Min/Fe/FA 1 TAB TABLET PO SCH (09:00)
[2019-02-10 12:41] VITALS: BP 120/74
--- NOTE | 2019-02-10 14:42 | Discharge Summary ---
- NOTES TO OUTPATIENT PROVIDER Notes to Outpatient Provider: follow up with IR and have CXR repeated on 02/11 in [facility] morning to again evaluate the PTX Date of Encounter: 02/10/19 Time of Encounter: 14:32 - Discharge Diagnosis (1) Pneumothorax after biopsy Priority: Primary Status: Acute (2) Subcutaneous emphysema after procedure Priority: Secondary Status: Acute (3) Pneumomediastinum Priority: Secondary Status: Acute (4) Hydropneumothorax Priority: Secondary Status: Acute (5) Lung nodule Priority: Secondary Status: Acute Hospital course: "Ms. Mishra is a 58 year old female who has hx of hypertension, COPD , smoker, GERD, hyperlipidemia presented to IR for lung biopsy today. Patient has long hx of smoking, had CT abdomen for kidney stone in 11/2018 , which showed mutiple lung nodules, she has siginificant family hx of lung cancer and smoker over 445 years. Patient was refered to IR for lung biopsy. She has Successful CT-guided core biopsy of a right lower lobe nodule. Initial attempt at biopsy of the right middle lobe nodule was unsuccessful due to surrounding parenchymal h emorrhage. Completion CT showed a small right-sided pneumothorax, some of which was manually aspirated. Patient is doing well, on 2 L NC, denies SOB, mild chest pain from the needle site. Biopsy was complicated by a small right pneumothorax. The pneumothorax is essentially unchanged since post procedure. However, given that patient is experiencing pain still, Dr Alvarado wants to have the patient observed overnight with repeat xray in the morning. If pneumothorax is unchanged, she can likely be discharged if not symptomatic. If larger, will likely need a chest tube placed. Patient is agreeable. " patient presented with above presentation and had aove procedure course. she was admitted and monitored. multiple cxrs were performed along with CT chest all results are below. i discussed results with IR, Dr. Forbes and Dr. garcia and after reviewing the xrays they cleared the patient for discharge. patient remained hypodynamically stable with minimal soreness in [facility] right chest. she was saturating >95% on RA. no significant events or arrhythmias on telemetry. H/H repeated and stable as per Dr. Garcia recommendations i discussed with her to come back to [facility] ED or call [phone]/EMS if she develops chest pain or difficulty breathing or worsening skin and neck swelling. she understands that the IR team works also at [facility] as she has plans to go to her daughter's house in [place]. she understands that she is to have a CXR repeat on 02/11 in the morning ( either in [place] or at [place] depending on where she is) . information provided for her. she was counseled on smoking cessation- nicotine patch RX provided for the patient. 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 CXR 02/08- IMPRESSION: Trace right apical pneumothorax. No mediastinal shift. Hazy right mid lung opacity consistent with post biopsy hemorrhage. Nodular opacities in the left mid lung. CXR: : IMPRESSION: Small right apical pneumothorax appears stable to minimally larger compared to previous chest x-ray. CXR 02/09- IMPRESSION: 1. Increase in right chest wall subcutaneous emphysema without obvious pneumothorax. chest CT 02/09-IMPRESSION: 1. Interval improvement in right pneumothorax with a tiny residual right hydropneumothorax. 2. Post biopsy changes and or hemorrhage within the right lower lobe have also improved since 02/08/2019. Ground-glass attenuation within the right upper lobe likely reflecting post biopsy changes and/or hemorrhage have not significantly changed since the prior exam. 3. Worsening subcutaneous emphysema in the right anterior chest wall extending posteriorly and superiorly into the right neck. There is also a small focus of pneumomediastinum in the superior aspect. 4. Otherwise no significant interval change in bilateral pulmonary solid and cavitary nodules and intrathoracic adenopathy. CXR: 02/09- IMPRESSION: 1. Overall similar appearance of subcutaneous emphysema. 2. No pneumothorax evident. 3. Persistent airspace consolidation within right upper lobe. CXR 02/10-IMPRESSION: 1. Hazy infiltrate noted in the right upper lobe, likely related to edema/hemorrhage following biopsy. 2. Suspected pneumomediastinum. Follow-up chest radiographs are recommended to ensure stability. 3. Right chest wall subcutaneous emphysema. 4. Multiple pulmonary nodules, better seen on the previous CT which may be related to an infectious etiology versus metastatic disease. Discharge discussed with: patient, clinical education consultant - Time Spent with Patient Total time spent providing and/or coordinating discharge services: Time spent: Greater than 30 minutes (35) - Discharge Medications Prescriptions: New RX: Nicotine Patch [Nicoderm] 21 mg TD DAILY #30 patch.[email or web address] Continued RX: Esomeprazole Magnesium [Nexium] 40 mg PO DAILY RX: Atorvastatin [Lipitor] 40 mg PO HS RX: Sertraline [Zoloft] 50 mg PO DAILY RX: Cholecalciferol (D-3) [Vitamin D] 1,000 unit PO DAILY RX: Amlodipine Besylate 2.5 mg PO DAILY RX: Multivitamin [Daily Multiple Vitamin] 1 tab PO DAILY RX: Amitriptyline [Elavil] 25 mg PO HS PRN PRN Reason: Sleep RX: Fluticasone/Umeclidin/Vilanter [Trelegy Ellipta 100-62.5-25] 1 puff PO DAILY RX: Verapamil [Isoptin] 120 mg PO DAILY PRN PRN Reason: Headache RX: Vitamin E 400 units PO DAILY Home Medications: RX: Atorvastatin [Lipitor] 40 mg PO HS 04/25/17 [History] RX: Cholecalciferol (D-3) [Vitamin D] 1,000 unit PO DAILY 04/25/17 [History] RX: Esomeprazole Magnesium [Nexium] 40 mg PO DAILY 04/25/17 [History] RX: Sertraline [Zoloft] 50 mg PO DAILY 04/25/17 [History] RX: Amlodipine Besylate 2.5 mg PO DAILY 12/07/18 [History] RX: Multivitamin [Daily Multiple Vitamin] 1 tab PO DAILY 12/07/18 [History] RX: Amitriptyline [Elavil] 25 mg PO HS PRN 02/08/19 [History] RX: Fluticasone/Umeclidin/Vilanter [Trelegy Ellipta 100-62.5-25] 1 puff PO DAILY 02/09/19 [History] RX: Verapamil [Isoptin] 120 mg PO DAILY PRN 02/09/19 [History] RX: Vitamin E 400 units PO DAILY 02/09/19 [History] RX: Nicotine Patch [Nicoderm] 21 mg TD DAILY #30 patch.td24 02/10/19 [Rx] Allergies/Adverse Reactions: Allergy/AdvReac Type Severity Reaction Status Date / Time codeine Allergy Nausea Verified 02/09/19 01:05 Vomiting Penicillins Allergy Anaphylaxis Verified 02/09/19 01:05 bees Allergy Anaphylaxis Uncoded 02/09/19 01:05 laxatives AdvReac Gastrointestinal Uncoded 02/09/19 01:05 Upset Vomiting Date of admission: 02/09/19 08:08 Primary care physician: Dino Martel MD - Constitutional Vitals: Temp Pulse Resp BP Pulse Ox 97.6 F 89 16 120/74 96 02/10/19 07:22 02/10/19 12:40 02/10/19 12:40 02/10/19 12:40 02/10/19 12:40 General appearance: Present: A&O X 3, pleasant Exam: General: Patient is alert, oriented, no acute distress, speaks in full sentences Head: atraumatic, normocephalic, Eye: normal appearance, PERRL, no scleral icterus, no conjunctival injection ENT: mucous membranes moist, normal external ear exam Neck: normal inspection, trachea midline, full ROM, no carotid bruits Chest: normal inspection, symmetric chest rise, biopsy site is clean covered with bandaid. crepetius on palpation of the posterior chest Respiratory: Good respiratory effort. Bilateral breath sounds are clear Cardiovascular: Regular rate and rhythm. s1 and s2 No clicks, rubs, gallops, or murmors. Abdomen: Bowel sounds present normoactive x-4 quadrants. Abdomen is soft, nondistended. no Epigastric tenderness. No guarding or rebound. No organomegaly noted, obese musculoskeletal: Spontaneously moving all extremities. no edema, no calf tenderness Skin: warm, dry, intact. Neuro: Alert and oriented x 3, no focal deficit Psych: Patient's affect is normal - Patient Status Disposition: Home, Self-Care Condition: Fair Functional capacity at discharge: independent ambulation Overall status at discharge: patient is progressing back to baseline - Discharge Instructions Follow Up With: Dino Martel MD [Primary Care Provider] - (Appt has been requested. ) - Diet and Activity Activity: increase activity as tolerated Diet: advance to your usual diet
[2019-02-10 15:15] LABS: Hematocrit 45.7 % (35.3-44.9); Hemoglobin 14.9 g/dL (11.5-15.4)
== END 2019-02-10 16:34 | disposition home or self-care (01) ==
LOC: RAD 09:21 → 3BNU 09:21
PROVIDERS: ADMIT Internal Medicine Hospice and Palliative Medicine; ATTEND Internal Medicine Hospice and Palliative Medicine